=== PATIENT | female | born 1950 | race Caucasian/White ===

== ENCOUNTER → 2021-02-02 | Outpatient (CLI) | payer OTHER ==
[~2021-02-02] MED LIST: Acetaminophen650 M1 PO; BUSPIRONE HCL30 M1 PO; HYDROCODONE-AC1 EA13 PO; IBUP400 PO; PRED20 PO
[2021-02-02 13:49] LABS: BASOPHILS ABSOLUTE AUTO 0.08 K/mm3 (0.00-0.23); BASOPHILS PERCENT AUTO 1 % (0-2); EOSINOPHILS ABSOLUTE AUTO 0.36 K/mm3 (0.00-0.68); EOSINOPHILS PERCENT AUTO 4 % (0-6); Hematocrit 44.4 % (33.0-51.0); Hemoglobin 13.6 g/dL (11.5-16.0); IMMATURE GRAN ABSOLUTE AUTO 0.02 K/mm3 (0.00-0.10); IMMATURE GRAN PERCENT AUTO 0 % (0-1); LYMPHOCYTES ABSOLUTE AUTO 1.25 K/mm3 (0.84-5.20); LYMPHOCYTES PERCENT AUTO 12 % (21-46); MONOCYTES ABSOLUTE AUTO 1.01 K/mm3 (0.16-1.47); MONOCYTES PERCENT AUTO 10 % (4-13); Mean Corpuscular HGB 27.1 pg (26.0-34.0); Mean Corpuscular HGB Conc 30.6 g/dL (31.5-36.5); Mean Corpuscular Volume 89 fL (80-100); Mean Platelet Volume 9.7 fL (9.1-12.4); NEUTROPHILS ABSOLUTE AUTO 7.51 K/mm3 (1.96-9.15); NEUTROPHILS PERCENT AUTO 73 % (41-73); Platelet Count 364 K/mm3 (150-400); RDW Coefficient Variation 14.1 % (11.7-14.2); RDW Standard Deviation 45.1 fL (35.1-46.3); Red Blood Cell Count 5.01 M/mm3 (3.80-5.20); White Blood Cell Count 10.23 K/mm3 (4.00-11.30)
[2021-02-02 14:01] LABS: Alanine Aminotransfer (ALT/SGP 18 U/L (12-78); Albumin, Blood 3.2 g/dL (3.4-5.0); Albumin/Globulin Ratio 0.6 (0.8-1.8); Alk Phos 79 U/L (40-126); Anion Gap 12 mmol/L (6-16); Aspartate Aminotrans (AST/SGOT 32 U/L (12-37); Bilirubin, Total 0.6 mg/dL (0.1-1.0); Blood Urea Nitrogen 16 mg/dL (8-24); Bun/Creatinine Ratio 21.9 (12.0-20.0); CO2, Blood 28 mmol/L (21-32); Calcium, Blood 9.6 mg/dL (8.5-10.1); Chloride, Blood 102 mmol/L (98-108); Creatinine, Blood 0.73 mg/dL (0.40-1.00); Glomerular Filtration Rate >60 (60-); Glucose, Blood 111 mg/dL (70-99); Potassium, Blood 4.5 mmol/L (3.5-5.5); Sodium, Blood 142 mmol/L (136-145); Total Protein, Blood 8.2 g/dL (6.4-8.2)
== END | disposition home or self-care (01) ==
LOC: LAB SHORT 13:43 → LAB EV 13:43
PROVIDERS: Physician Assistant
DX: R16.1 Splenomegaly, not elsewhere classified (principal)
CPT/HCPCS: 80053; 85025

== ENCOUNTER → 2021-02-06 | Outpatient (CLI) | payer OTHER | END | disposition home or self-care (01) | LOC: LAB SHORT 10:49 → LAB EV 10:49 | DX: N39.0 Urinary tract infection, site not specified (principal) | CPT/HCPCS: 87086 ==

== ENCOUNTER → 2021-02-16 | Outpatient (CLI) | payer OTHER | END | disposition home or self-care (01) | LOC: LAB 13:22 → LAB SHORT 13:22 | DX: N39.0 Urinary tract infection, site not specified (principal) | CPT/HCPCS: 87086 ==

== ENCOUNTER 2021-05-11 08:55 | Day surgery (SDC) | payer OTHER ==
[~2021-05-11] VITALS: Ht 157.5 cm; Wt 104.1 kg
[~2021-05-11 08:55] MED LIST changes: -BUSPIRONE HCL30 M1 PO; -HYDROCODONE-AC1 EA13 PO; -PRED20 PO
--- NOTE | 2021-05-11 09:41 | NUR ---
History, Chart, Medications and Allergies reviewed before start of procedure. Patient confirms NPO status and agrees with scheduled surgery. Pre-Op teaching done. Pt verbalizes understanding. Patient States Post-Procedure ride home has been arranged.
[2021-05-11 12:32] LABS: Performing Lab SYMBIODX; Test Name FLOW CYTOMETRY
--- NOTE | 2021-05-11 13:00 | NUR ---
1300 PT DCD HOME Discharge instructions reviewed with patient. Patient verbalizes understanding. Copy given to patient to take home. Dressing to procedure site clean, dry, intact with no visible drainage, swelling, erythema or bruising noted. Patient States Post-Procedure ride home has been arranged. Discharged via wheelchair to private car for ride home.
[2021-05-15 11:17] LABS: Test Name B CELL LYMPHOMA
[2021-06-07] MEDS ORDERED: HYDROCODONE-AC1 EA13 PO (14:41)
[2021-06-07] MEDS ORDERED: PRED20 PO (14:41)
[2021-06-07] MEDS ORDERED: BUSPIRONE HCL30 M1 PO (14:42)
== END 2021-05-11 22:45 | disposition home or self-care (01) ==
LOC: ORSCMMR 08:55 → ORD 10:30 → ORSCMMR 22:45
PROVIDERS: Surgery
PROC: 07BH0ZX Excision of Right Inguinal Lymphatic, Open Approach, Diagnostic (ICD-10-PCS; principal; 2021-05-11 10:30)
DX: C85.15 Unspecified B-cell lymphoma, lymph nodes of inguinal region and lower limb (principal); R16.1 Splenomegaly, not elsewhere classified; E03.9 Hypothyroidism, unspecified; E66.01 Morbid (severe) obesity due to excess calories; Z68.41 Body mass index [BMI] 40.0-44.9, adult; F41.9 Anxiety disorder, unspecified
CPT/HCPCS: 87071; 87075; 87102; 87205; 88184; 88185; 88305; 88341; 88342; A9270; J0690; J1100; J2405; J2704; J3010; J7120

== ENCOUNTER 2021-06-07 13:02 | Day surgery (SDC) | payer OTHER | END 2021-06-07 18:43 | disposition home or self-care (01) | LOC: ORSCSDS 13:02 | PROC: B543ZZA Ultrasonography of Right Jugular Veins, Guidance (ICD-10-PCS; principal; 2021-06-07) | PROC: 05HM33Z Insertion of Infusion Device into Right Internal Jugular Vein, Percutaneous Approach (ICD-10-PCS; principal; 2021-06-07) | DX: C85.10 Unspecified B-cell lymphoma, unspecified site (principal); I10 Essential (primary) hypertension; E03.9 Hypothyroidism, unspecified; Z79.899 Other long term (current) drug therapy; E66.01 Morbid (severe) obesity due to excess calories; Z68.41 Body mass index [BMI] 40.0-44.9, adult ==

== ENCOUNTER 2021-10-19 00:11 | Emergency (ER) | payer OTHER ==
[~2021-10-19] VITALS: Ht 157.5 cm; Wt 97.5 kg
[~2021-10-19 00:11] MED LIST changes: +BUSPIRONE HCL30 M1 PO; +HYDROCODONE-AC1 EA13 PO; +PRED20 PO
[2021-10-19 01:11] LABS: White Blood Cell Count 9.61 K/mm3 (4.00-11.30)
[2021-10-19 01:12] LABS: BASOPHILS ABSOLUTE AUTO 0.05 K/mm3 (0.00-0.23); BASOPHILS PERCENT AUTO 1 % (0-2); EOSINOPHILS ABSOLUTE AUTO 0.14 K/mm3 (0.00-0.68); EOSINOPHILS PERCENT AUTO 2 % (0-6); Hematocrit 30.4 % (33.0-51.0); Hemoglobin 9.6 g/dL (11.5-16.0); IMMATURE GRAN ABSOLUTE AUTO 0.32 K/mm3 (0.00-0.10); IMMATURE GRAN PERCENT AUTO 3 % (0-1); LYMPHOCYTES ABSOLUTE AUTO 0.59 K/mm3 (0.84-5.20); LYMPHOCYTES PERCENT AUTO 6 % (21-46); MONOCYTES ABSOLUTE AUTO 1.78 K/mm3 (0.16-1.47); MONOCYTES PERCENT AUTO 19 % (4-13); Mean Corpuscular HGB 28.7 pg (26.0-34.0); Mean Corpuscular HGB Conc 31.6 g/dL (31.5-36.5); Mean Corpuscular Volume 91 fL (80-100); Mean Platelet Volume 9.4 fL (9.1-12.4); NEUTROPHILS ABSOLUTE AUTO 6.73 K/mm3 (1.96-9.15); NEUTROPHILS PERCENT AUTO 70 % (41-73); Platelet Count 368 K/mm3 (150-400); RDW Coefficient Variation 14.8 % (11.7-14.2); RDW Standard Deviation 49.8 fL (35.1-46.3); Red Blood Cell Count 3.34 M/mm3 (3.80-5.20)
[2021-10-19 01:31] LABS: Anion Gap 8 mmol/L (6-16); Blood Urea Nitrogen 12 mg/dL (8-24); Bun/Creatinine Ratio 21.5 (12.0-20.0); CO2, Blood 29 mmol/L (21-32); Calcium, Blood 8.8 mg/dL (8.5-10.1); Chloride, Blood 98 mmol/L (98-108); Creatinine, Blood 0.56 mg/dL (0.40-1.00); Glomerular Filtration Rate >60 (60-); Glucose, Blood 113 mg/dL (70-99); Potassium, Blood 3.7 mmol/L (3.5-5.5); Sodium, Blood 135 mmol/L (136-145)
[2021-10-19 01:50] LABS: Influenza A, PCR NEGATIVE (NEGATIVE); Influenza B, PCR NEGATIVE (NEGATIVE); Resp Syncytial Virus, PCR NEGATIVE (NEGATIVE); SARS-Cov-2 (COVID-19) PCR, MMC NEGATIVE (NEGATIVE)
[2021-10-20] MEDS ORDERED: Levaquin750 MG PO (10:41)
== END 2021-10-19 02:20 | disposition home or self-care (01) ==
LOC: ER 00:11
PROVIDERS: Student in an Organized Health Care Education/Training Program
DX: J40 Bronchitis, not specified as acute or chronic (principal); B34.9 Viral infection, unspecified; Z88.1 Allergy status to other antibiotic agents; Z79.899 Other long term (current) drug therapy; Z79.52 Long term (current) use of systemic steroids; Z79.891 Long term (current) use of opiate analgesic; Z20.822 Contact with and (suspected) exposure to COVID-19
CPT/HCPCS: 0241U; 36415; 71045; 80048; 85025; 99283

== ENCOUNTER 2021-10-27 05:00 | Inpatient (IN) | payer OTHER ==
[~2021-10-27] VITALS: Ht 157.5 cm; Wt 103.1 kg
[~2021-10-27 05:00] MED LIST changes: +Levaquin750 MG PO
[2021-10-27 05:53] LABS: BASOPHILS ABSOLUTE AUTO 0.03 K/mm3 (0.00-0.23); BASOPHILS PERCENT AUTO 1 % (0-2); Hematocrit 30.4 % (33.0-51.0); Hemoglobin 9.5 g/dL (11.5-16.0); LYMPHOCYTES ABSOLUTE AUTO 0.21 K/mm3 (0.84-5.20); LYMPHOCYTES PERCENT AUTO 4 % (21-46); MONOCYTES ABSOLUTE AUTO 0.05 K/mm3 (0.16-1.47); MONOCYTES PERCENT AUTO 1 % (4-13); Mean Corpuscular HGB 27.8 pg (26.0-34.0); Mean Corpuscular HGB Conc 31.3 g/dL (31.5-36.5); Mean Corpuscular Volume 89 fL (80-100); Mean Platelet Volume 9.6 fL (9.1-12.4); Platelet Count 320 K/mm3 (150-400); RDW Coefficient Variation 15.9 % (11.7-14.2); RDW Standard Deviation 51.7 fL (35.1-46.3); Red Blood Cell Count 3.42 M/mm3 (3.80-5.20); White Blood Cell Count 5.52 K/mm3 (4.00-11.30)
[2021-10-27 05:56] LABS: EOSINOPHILS ABSOLUTE AUTO 0.08 K/mm3 (0.00-0.68); EOSINOPHILS PERCENT AUTO 1 % (0-6); IMMATURE GRAN ABSOLUTE AUTO 0.05 K/mm3 (0.00-0.10); IMMATURE GRAN PERCENT AUTO 1 % (0-1); NEUTROPHILS PERCENT AUTO 93 % (41-73)
[2021-10-27 05:57] LABS: Source, Urine Catheter
[2021-10-27 06:06] LABS: Influenza A, PCR NEGATIVE (NEGATIVE); Influenza B, PCR NEGATIVE (NEGATIVE); Resp Syncytial Virus, PCR NEGATIVE (NEGATIVE); SARS-Cov-2 (COVID-19) PCR, MMC NEGATIVE (NEGATIVE)
[2021-10-27 06:11] LABS: Bilirubin, Urine Neg (Neg); Blood, Urine Neg (Neg); Glucose Qualitative, Urine Neg (Neg); Ketones, Urine 2+ (Neg); Leukocyte Esterase, Urine Neg (Neg); Nitrite, Urine Neg (Neg); Protein, Urine Neg (Neg); Urobilinogen, Urine NORM (Normal); pH, Urine 6.5 (5.0-8.0)
[2021-10-27 06:14] LABS: Alanine Aminotransfer (ALT/SGP 21 U/L (12-78); Albumin/Globulin Ratio 0.4 (0.8-1.8); Alk Phos 78 U/L (50-136); Anion Gap 8 mmol/L (6-16); Aspartate Aminotrans (AST/SGOT 32 U/L (12-37); Bilirubin, Total 0.8 mg/dL (0.1-1.0); Blood Urea Nitrogen 9 mg/dL (8-24); CO2, Blood 27 mmol/L (21-32); Calcium, Blood 8.2 mg/dL (8.5-10.1); Chloride, Blood 94 mmol/L (98-108); Creatinine, Blood 0.43 mg/dL (0.40-1.00); Globulin, Blood 4.5 g/dL (2.2-4.0); Glomerular Filtration Rate >60 (60-); Glucose, Blood 107 mg/dL (70-99); Potassium, Blood 3.4 mmol/L (3.5-5.5); Sodium, Blood 129 mmol/L (136-145); Total Protein, Blood 6.5 g/dL (6.4-8.2); Troponin I 0.183 ng/mL (0.000-0.040)
[2021-10-27 06:17] LABS: Appearance, Urine Clear (Clear); Color, Urine Yellow (P-Yellow)
--- NOTE | 2021-10-27 15:00 | NUR ---
TRANSFER UPDATE REPORT FROM ER NURSE RECIEVED AT 0640.
[2021-10-27] MEDS ORDERED: OMEP20ER PO (16:18)
[2021-10-27] MEDS ORDERED: Acetaminophen650 M1 PO (16:18)
[2021-10-27] MEDS ORDERED: ECOTRIN325 MG PO (16:19)
--- NOTE | 2021-10-27 16:21 | NUR ---
Pt arrived from the ED on stretcher. pt is alert, oriented and states that she can stand and transfer from stretcher to the bed. RN accompanying pt stated that pt had been up to [facility] with pt's assisting while in theED. Pt demonstated ability to transfer, with minimal assistance. Denies any pain, but states she has been having frequent diarrhea today. Mediport noted accessed; accompanying RN stated that it was not heparin locked. IV fluids started concurrently with potassium rider which was ordered, infusing via mediport on the right chest wall. Blood pressure noted low, reported this to the primary RN, Nickolas at time of admission. Pt denied any dizzyness/lightheadedness at rest nor during transfer. Noted pt spo2 92-94% while on room air. Pt states that she does not use oxygen/cpap/bipap at home. Pt stated mouth very dry. Noted chapped lips also. Pt was given water to drink, jello, and chapstick. Assisted to bedside commode and she voided and also had a liquid brown stool. Assisted back to bed, she states that she is cold. Warm blanket provided, and facilities called by [facility] and room temperature requested to be elevated to 72 degrees Farhenheit. Pt appears to be resting comfortably at this time.
--- NOTE | 2021-10-27 19:51 | NUR ---
RECEIVED PHONE CALL FROM PHARMACIST THAT THE 1545 AND 1745 POTASSIUM 20MEQ/50ML WAS A DUPLICATE ORDER AND ONLY ONE PHYSICIAN ORDER FOR A TOTAL OF 40 MEQ. PLEASE REFER TO MAR, MEDICATION NOT GIVEN DUE TO DUPLICATE INCOMPLETE ORDER ENTERED BY PHARMACIST.
--- NOTE | 2021-10-27 21:57 | NUR ---
PATIENT IS ALERT AND ORIENTATED, ABLE TO MAKE NEEDS KNOWN, USES CALL LIGHT APPROPRIATELY, SBA TO BEDSIDE COMMODE WITH SET UP PROVIDED, HAS HAD MULTIPLE LIQUID STOOL NO COMPLAINTS OF NAUSEA, VOMITING, AND/OR CRAMPING BEEN AFEBRILE, ON IV ANTIBIOTICS AND FLAGYL. LUNGS SOUNDS ARE CLEAR WITH DIMINISHED LOWER LOBES, 2L NC SATURATIONS MAININTAIN ABOVE 92%, NOTED DEPENDENT EDEMA BLE, PULSES ARE BOUNDING AND STRONG X 4 WITH GOOD CAPREFILL. WILL CONTINUE TO MONITOR UNTIL SHIFT CHANGE.
[2021-10-28 04:30] LABS: BASOPHILS ABSOLUTE AUTO 0.05 K/mm3 (0.00-0.23); BASOPHILS PERCENT AUTO 1 % (0-2); EOSINOPHILS ABSOLUTE AUTO 0.24 K/mm3 (0.00-0.68); EOSINOPHILS PERCENT AUTO 3 % (0-6); Hematocrit 29.8 % (33.0-51.0); IMMATURE GRAN ABSOLUTE AUTO 0.06 K/mm3 (0.00-0.10); IMMATURE GRAN PERCENT AUTO 1 % (0-1); LYMPHOCYTES ABSOLUTE AUTO 0.54 K/mm3 (0.84-5.20); LYMPHOCYTES PERCENT AUTO 8 % (21-46); MONOCYTES ABSOLUTE AUTO 1.36 K/mm3 (0.16-1.47); MONOCYTES PERCENT AUTO 19 % (4-13); Mean Corpuscular HGB 27.6 pg (26.0-34.0); Mean Corpuscular HGB Conc 30.2 g/dL (31.5-36.5); Mean Corpuscular Volume 91 fL (80-100); Mean Platelet Volume 9.6 fL (9.1-12.4); NEUTROPHILS ABSOLUTE AUTO 4.81 K/mm3 (1.96-9.15); NEUTROPHILS PERCENT AUTO 68 % (41-73); Platelet Count 302 K/mm3 (150-400); RDW Coefficient Variation 15.7 % (11.7-14.2); RDW Standard Deviation 52.6 fL (35.1-46.3); Red Blood Cell Count 3.26 M/mm3 (3.80-5.20); White Blood Cell Count 7.06 K/mm3 (4.00-11.30)
[2021-10-28 04:43] LABS: Anion Gap 4 mmol/L (6-16); Blood Urea Nitrogen 10 mg/dL (8-24); CO2, Blood 31 mmol/L (21-32); Calcium, Blood 8.6 mg/dL (8.5-10.1); Chloride, Blood 100 mmol/L (98-108); Creatinine, Blood 0.56 mg/dL (0.40-1.00); Glomerular Filtration Rate >60 (60-); Glucose, Blood 95 mg/dL (70-99); Magnesium, Blood 2.1 mg/dL (1.6-2.4); Sodium, Blood 135 mmol/L (136-145)
--- NOTE | 2021-10-28 08:50 | NUR ---
UPDATE PHYSICIAN NOTIFIED OF PT'S LOW BP AND MAP. ORDERS FOR 1 FLUID BOLUS, ORDERS FOR MAINTENCANCE FLUIDS TO RUN AT 100 ML/HR, AND PHYSICIAN INSTRUCTED NOT TO USE MEDIPORT AT THIS TIME. WILL HEPARIN LOCK MEDIPORT. MEDIPORT WAS IN USE PRIOR TO THIS SHIFT.
--- NOTE | 2021-10-28 10:56 | NUR ---
PHYSICIAN AT BEDSIDE PHYSICIAN AWARE MAP BELOW 60. MEDICATION ORDERS, D/C ROCEPHIN, ADD CEFEPIME 2 G Q 8 HRS, AND VANCO CONSULT. WILL INFORM HOSPITALIST IN 2 HRS IF PT CONT TO HAVE MAPS BELOW 65.
--- NOTE | 2021-10-28 17:37 | NUR ---
SHIFT SUMMARY PT ALERT AND ORIENTED X 4. SLOW TO RESPOND AT TIMES. BP HYPOTENSIVE THIS AM.PHYSICIAN AWARE, SEE EMAR FOR ORDERS. HR STABLE. NO CP OR PRESSURE. PT SBA TO COMMODE. AT BEDSIDE. PT HAS INCREASE IN BP, MAP REMAINS ABOVE 65. PT ABLE TO TURN SELF IN BED. MEDIPORT DEACCESSED PER PHYSICIAN ORDER. OXYGEN SATURATION MAINTAINED ABOVE 92% ON 2 L OF OXYGEN VIA NC. WILL CONT TO MONITOR UNTIL REPORT GIVEN TO NIGHTSHIFT RN.
--- NOTE | 2021-10-29 03:42 | NUR ---
PATIENT NEW ORDER FOR WILCOX CATHETER MONITOR I/O'S PATIENT HAS SURGICAL INTERVENTION, INSERTED 14FR WILCOX CATHETER USING STERILE TECHNIQUE WITH SAEED SILVA AND LAI RN, PATIENT TOLERATED WELL. PATIENT THROUGHOUT PASSED 2 NIGHTS HAS BEEN GOING TO THE BATHROOM [id number] RETAINING FEELING NOT EMPTYING THE BLADDER, UPON INSERTION NOTED 300ML DRAINING IN BAG POST PATIENT USING BEDSIDE COMMODE.
--- NOTE | 2021-10-29 11:31 | NUR ---
CRITICAL LAB RESULT GRAM + BLOOD CULTURES IN CHAINS. NOTIFIED. PT IS ALREADY ON 3 ANTIBIOTICS. NO CHANGES AT THIS POINT.
--- NOTE | 2021-10-29 17:20 | NUR ---
Pt is A&O, pleasant with cares. VSS on RA, pt did have soft BP in AM. + blood cultures. IV abx continued per orders. Meng patent and draining well. IV fluids NS running at 100ml/hr until d/c.
[2021-10-30 04:14] LABS: BASOPHILS ABSOLUTE AUTO 0.05 K/mm3 (0.00-0.23); BASOPHILS PERCENT AUTO 1 % (0-2); EOSINOPHILS ABSOLUTE AUTO 0.22 K/mm3 (0.00-0.68); EOSINOPHILS PERCENT AUTO 3 % (0-6); Hematocrit 30.3 % (33.0-51.0); Hemoglobin 9.4 g/dL (11.5-16.0); IMMATURE GRAN ABSOLUTE AUTO 0.07 K/mm3 (0.00-0.10); IMMATURE GRAN PERCENT AUTO 1 % (0-1); LYMPHOCYTES ABSOLUTE AUTO 0.91 K/mm3 (0.84-5.20); LYMPHOCYTES PERCENT AUTO 11 % (21-46); MONOCYTES ABSOLUTE AUTO 1.26 K/mm3 (0.16-1.47); MONOCYTES PERCENT AUTO 15 % (4-13); Mean Corpuscular HGB 27.6 pg (26.0-34.0); Mean Corpuscular Volume 89 fL (80-100); Mean Platelet Volume 9.3 fL (9.1-12.4); NEUTROPHILS ABSOLUTE AUTO 6.12 K/mm3 (1.96-9.15); NEUTROPHILS PERCENT AUTO 71 % (41-73); Platelet Count 326 K/mm3 (150-400); RDW Coefficient Variation 15.9 % (11.7-14.2); RDW Standard Deviation 51.8 fL (35.1-46.3); Red Blood Cell Count 3.41 M/mm3 (3.80-5.20); White Blood Cell Count 8.63 K/mm3 (4.00-11.30)
[2021-10-30 04:36] LABS: Anion Gap 7 mmol/L (6-16); Blood Urea Nitrogen 8 mg/dL (8-24); Bun/Creatinine Ratio 16.8 (12.0-20.0); CO2, Blood 29 mmol/L (21-32); Calcium, Blood 8.6 mg/dL (8.5-10.1); Chloride, Blood 101 mmol/L (98-108); Creatinine, Blood 0.48 mg/dL (0.40-1.00); Glomerular Filtration Rate >60 (60-); Glucose, Blood 96 mg/dL (70-99); Potassium, Blood 3.6 mmol/L (3.5-5.5); Sodium, Blood 137 mmol/L (136-145)
--- NOTE | 2021-10-30 06:02 | NUR ---
SHIFT SUMMARY: PT AWAKE AND ALERT, FREQUENTLY USING CALL LIGHT TO REQUEST ASSIST TO COMMODE, PT HAS WILCOX, BUT FEELS SHE IS GOING TO HAVE BM. MULTIPLE TIMES TO COMMODE WITH NO RESULTS. SR ON TELE, NPO FOR PROCEDURE LATER TODAY. DENIES PAIN OR DISCOMFORT, REQUIRES MUCH ENCOURAGMENT TO INCREASE INDEPENDENC WITH SMALL TASKS AND ADL'S. BED LOCKED AND LOW, CALL HILLIARD IN REACH. VANDANA TOPETE
--- NOTE | 2021-10-30 11:06 | NUR ---
I attempted to visit the patient in her room [id number] and she was asleep.
--- NOTE | 2021-10-30 17:56 | NUR ---
Shift note: Pt a&ox 4, pleasant with cares. VSS on RA. Pt does have a dry cough. Pt was NPO for possible drain placement. No drain placed today and pt ate dinner. IV abx continued per orders (vanco & cefepime) as well as PO flagyl. Pt will need to be transferred to different facility for surgical procedure. Meng in place and draining well. Tele:
--- NOTE | 2021-10-30 19:11 | NUR ---
Pt accepted to [facility] room #4605. updated with room number. shift commander RN Vicky will give report.
--- NOTE | 2021-10-30 19:54 | NUR ---
REPORT CALLED TO EMEIGH AT [facility]. PT TO BE TRANSFERED, ADMITTED TO ROOM 4430 UNDER THE CARE OF DR MARTINES. GIANLUCAORT PENDING. VANDANA TOPETE
== END 2021-10-30 20:23 | disposition short-term general hospital (02) | DRG 871 ==
LOC: ER 05:00 → ERHOLD 13:26 → PCU 13:26
PROVIDERS: Emergency Medicine; Pharmacist; ADMIT Internal Medicine
DX: A41.9 Sepsis, unspecified organism (principal); J18.9 Pneumonia, unspecified organism; E43 Unspecified severe protein-calorie malnutrition; C85.13 Unspecified B-cell lymphoma, intra-abdominal lymph nodes; Z20.822 Contact with and (suspected) exposure to COVID-19; D73.3 Abscess of spleen; E03.9 Hypothyroidism, unspecified; G47.00 Insomnia, unspecified; F41.9 Anxiety disorder, unspecified; Z98.890 Other specified postprocedural states; Z90.49 Acquired absence of other specified parts of digestive tract; Z88.1 Allergy status to other antibiotic agents; Z79.899 Other long term (current) drug therapy; E87.6 Hypokalemia; Z68.39 Body mass index [BMI] 39.0-39.9, adult
CPT/HCPCS: 0241U; 36415; 51702; 71045; 71260; 74176; 80048; 80053; 80202; 81003; 83605; 83735; 83880; 84145; 84484; 85025; 87040; 87076; 93005; 93010; 96365; 96366; 96367; 97110; 97162; 97165; 97535; 99285-25; A9270; J0692; J0696; J1642; J1650; J3370; J3480; J7030; J7040; J7050; J7120; P9612; Q9967

== ENCOUNTER 2023-10-14 11:18 | Emergency (ER) | payer OTHER ==
[~2023-10-14] VITALS: Ht 162.6 cm; Wt 110.7 kg
[~2023-10-14 11:18] MED LIST changes: +ALBU90OI6 INH; +Acerola C500 MG PO; +DEXA2 PO; +ECOTRIN325 MG PO; +IBUP200 PO; +LEVFLO500 PO; +MASOPHEN500 M4 PO; +OMEP20ER PO; +ONDANSETRON ODT 4 MG; +Pepcid40 MG PO; +Q-Tussin100 MG/5 M PO; +VITAMIN B125000 MC1 PO; +VITAMIN D310 MC4 PO
[2023-10-14 12:05] LABS: BASOPHILS ABSOLUTE AUTO 0.07 K/mm3 (0.00-0.23); BASOPHILS PERCENT AUTO 1 % (0-2); EOSINOPHILS ABSOLUTE AUTO 0.47 K/mm3 (0.00-0.68); EOSINOPHILS PERCENT AUTO 4 % (0-6); Hematocrit 47.2 % (33.0-51.0); IMMATURE GRAN ABSOLUTE AUTO 0.04 K/mm3 (0.00-0.10); IMMATURE GRAN PERCENT AUTO 0 % (0-1); LYMPHOCYTES ABSOLUTE AUTO 2.27 K/mm3 (0.84-5.20); LYMPHOCYTES PERCENT AUTO 18 % (21-46); MONOCYTES ABSOLUTE AUTO 1.08 K/mm3 (0.16-1.47); MONOCYTES PERCENT AUTO 9 % (4-13); Mean Corpuscular HGB 28.2 pg (26.0-34.0); Mean Corpuscular HGB Conc 31.8 g/dL (31.5-36.5); Mean Corpuscular Volume 89 fL (80-100); Mean Platelet Volume 9.7 fL (9.1-12.4); NEUTROPHILS ABSOLUTE AUTO 8.68 K/mm3 (1.96-9.15); NEUTROPHILS PERCENT AUTO 69 % (41-73); Platelet Count 438 K/mm3 (150-400); RDW Coefficient Variation 14.3 % (11.7-14.2); RDW Standard Deviation 46.2 fL (35.1-46.3); Red Blood Cell Count 5.32 M/mm3 (3.80-5.20); White Blood Cell Count 12.61 K/mm3 (4.00-11.30)
[2023-10-14 12:33] LABS: Albumin, Blood 3.6 g/dL (3.4-5.0); Albumin/Globulin Ratio 0.7 (0.8-1.8); Bilirubin, Total 0.4 mg/dL (0.1-1.0); Bun/Creatinine Ratio 27.2 (12.0-20.0); Calcium, Blood 9.5 mg/dL (8.5-10.1); Creatinine, Blood 0.7 mg/dL (0.40-1.00); Potassium, Blood 4.2 mmol/L (3.5-5.5); Total Protein, Blood 8.6 g/dL (6.4-8.2)
[2023-10-14 18:30] VITALS: BP 128/68
== END 2023-10-14 19:22 | disposition home or self-care (01) ==
LOC: ER 11:18
PROVIDERS: Physician Assistant
DX: R51.9 Headache, unspecified (principal); F41.9 Anxiety disorder, unspecified
CPT/HCPCS: 70450; 80053; 85025; 93005; 93010; 99284-25; A9270

== ENCOUNTER → 2024-07-13 | Outpatient (CLI) | payer OTHER ==
[2024-07-13 18:03] LABS: Hematocrit 45.5 % (33.0-51.0); Hemoglobin 14.5 g/dL (11.5-16.0); Mean Corpuscular HGB 28.6 pg (26.0-34.0); Mean Corpuscular HGB Conc 31.9 g/dL (31.5-36.5); Mean Corpuscular Volume 90 fL (80-100); Mean Platelet Volume 9.4 fL (9.1-12.4); Platelet Count 410 K/mm3 (150-400); RDW Coefficient Variation 15.1 % (11.7-14.2); RDW Standard Deviation 48.1 fL (35.1-46.3); Red Blood Cell Count 5.07 M/mm3 (3.80-5.20); White Blood Cell Count 12.41 K/mm3 (4.00-11.30)
[2024-07-13 18:29] LABS: BASOPHILS PERCENT MAN 0 % (0-2); EOSINOPHILS ABSOLUTE MAN 0.12 K/mm3 (0.00-0.68); EOSINOPHILS PERCENT MAN 1 % (0-6); LYMPHOCYTES PERCENT MAN 21 % (21-46); MONOCYTES ABSOLUTE MAN 0.62 K/mm3 (0.16-1.47); MONOCYTES PERCENT MAN 5 % (4-13); NEUTROPHILS ABSOLUTE MAN 9.05 K/mm3 (1.96-9.15); SEG NEUTROPHILS PERCENT MAN 73 % (41-73); TOTAL CELLS COUNTED 100
== END | disposition home or self-care (01) ==
LOC: LAB SHORT 17:59 → LAB 17:59
PROVIDERS: Family Medicine
DX: C85.10 Unspecified B-cell lymphoma, unspecified site (principal); M79.10 Myalgia, unspecified site
CPT/HCPCS: 82550; 85007; 85027; 85651; 86140

== ENCOUNTER 2025-11-10 10:11 | Emergency (ER) | payer OTHER ==
[~2025-11-10] VITALS: Ht 157.5 cm; Wt 108.9 kg
[2025-11-10 11:07] LABS: BASOPHILS ABSOLUTE AUTO 0.05 K/mm3 (0.00-0.23); BASOPHILS PERCENT AUTO 1 % (0-2); EOSINOPHILS ABSOLUTE AUTO 0.13 K/mm3 (0.00-0.68); EOSINOPHILS PERCENT AUTO 1 % (0-6); Hematocrit 45.7 % (33.0-51.0); Hemoglobin 14.7 g/dL (11.5-16.0); IMMATURE GRAN ABSOLUTE AUTO 0.02 K/mm3 (0.00-0.10); IMMATURE GRAN PERCENT AUTO 0 % (0-1); LYMPHOCYTES ABSOLUTE AUTO 1.85 K/mm3 (0.84-5.20); LYMPHOCYTES PERCENT AUTO 18 % (21-46); MONOCYTES ABSOLUTE AUTO 0.76 K/mm3 (0.16-1.47); MONOCYTES PERCENT AUTO 7 % (4-13); Mean Corpuscular HGB Conc 32.2 g/dL (31.5-36.5); Mean Corpuscular Volume 88 fL (80-100); NEUTROPHILS ABSOLUTE AUTO 7.75 K/mm3 (1.96-9.15); NEUTROPHILS PERCENT AUTO 73 % (41-73); NRBC ABSOLUTE 0.00 K/mm3 (0.00-0.02); NRBC Auto 0.0 /100 WBC (0.0-0.2); Platelet Count 381 K/mm3 (150-400); RDW Coefficient Variation 15.3 % (11.7-14.2); RDW Standard Deviation 49.7 fL (35.1-46.3)
[2025-11-10 11:20] LABS: Alanine Aminotransfer (ALT/SGP 22.0 U/L (12-78); Albumin, Blood 3.2 g/dL (3.4-5.0); Albumin/Globulin Ratio 0.7 (0.8-1.8); Anion Gap 7.0 mmol/L (3-11); Aspartate Aminotrans (AST/SGOT 35.0 U/L (12-37); Bilirubin, Total 0.8 mg/dL (0.1-1.0); Blood Urea Nitrogen 20.0 mg/dL (8-24); CO2, Blood 31.0 mmol/L (21-32); Calcium, Blood 9.5 mg/dL (8.5-10.1); Chloride, Blood 103.0 mmol/L (98-108); Creatinine, Blood 0.62 mg/dL (0.40-1.00); Globulin, Blood 4.9 g/dL (2.2-4.0); Glucose, Blood 104.0 mg/dL (70-99); Potassium, Blood 4.2 mmol/L (3.5-5.5); Sodium, Blood 137.0 mmol/L (136-145); Total Protein, Blood 8.1 g/dL (6.4-8.2)
[2025-11-10 15:14] LABS: Influenza A, PCR NEGATIVE (NEGATIVE); Influenza B, PCR NEGATIVE (NEGATIVE); Resp Syncytial Virus, PCR NEGATIVE (NEGATIVE); SARS-Cov-2 (COVID-19) PCR, MMC NEGATIVE (NEGATIVE)
[2025-11-10 15:32] VITALS: BP 120/59
[2025-11-10] MEDS ORDERED: Ketorolac Tromethamine 15mg Vial IV ONE (16:30)
== END 2025-11-10 16:57 | disposition home or self-care (01) ==
LOC: ER 10:11
PROVIDERS: Student in an Organized Health Care Education/Training Program
DX: R07.89 Other chest pain (principal); Z59.89 Other problems related to housing and economic circumstances; Z79.2 Long term (current) use of antibiotics; Z79.899 Other long term (current) drug therapy; Z79.82 Long term (current) use of aspirin; K21.9 Gastro-esophageal reflux disease without esophagitis; E78.5 Hyperlipidemia, unspecified
CPT/HCPCS: 71046; 80053; 83880; 84484; 85025; 85379; 87637; 93005; 93010; 96374; 99284-25; A9270; J1885